=== PATIENT | male | born 1970 | race Hispanic/Latino ===

== ENCOUNTER → 2023-11-12 | Day surgery (SDC) | payer SELFPAY ==
[~2023-11-12] MED LIST: ASPIRIN81 MG PO; FARXIGA10 MG PO; GABAPENTIN300 MG PO; JANUVIA100 MG PO; LACTATED RINGER'S 1,000 ML ONE; LISINOPRIL10 MG PO; OR PHACO EYE KIT ONE; PREOP PHACO EYE KIT ONE; VICTOZA 2-0.6 MG/0.1 SC
[2023-11-12 13:35] VITALS: TEMP 97.2
[2023-11-12 13:55] VITALS: BP 130/83; PULSE 90; RESP 18; O2SAT 100
== END | disposition home or self-care (01) ==
LOC: OR 09:45
PROVIDERS: ATTEND Ophthalmology
DX: H25.11 Age-related nuclear cataract, right eye (principal); H57.09 Other anomalies of pupillary function; E11.9 Type 2 diabetes mellitus without complications; I10 Essential (primary) hypertension; Z88.8 Allergy status to other drugs, medicaments and biological substances; Z79.82 Long term (current) use of aspirin; Z79.84 Long term (current) use of oral hypoglycemic drugs; Z79.85 Long-term (current) use of injectable non-insulin antidiabetic drugs; Z79.899 Other long term (current) drug therapy
CPT/HCPCS: 36415; 66982; 82948; J7121; V2632